=== PATIENT | female | born 1955 | race Caucasian/White ===

== ENCOUNTER 2018-01-30 08:56 | Day surgery (SDC) | payer OTHER ==
[~2018-01-30 08:56] MED LIST: PROPOFOL 500 MG/50 ML EMU IV ONE
[2018-01-30 10:26] VITALS: BP 125/78; PULSE 77; RESP 18; TEMP 96.7; O2SAT 99
== END 2018-01-30 10:40 | disposition home or self-care (01) | DRG 951 ==
LOC: SURG 08:56
PROVIDERS: ATTEND Surgery
DX: Z12.11 Encounter for screening for malignant neoplasm of colon (principal)
CPT/HCPCS: J2704